=== PATIENT | female | born 1995 | race Caucasian/White ===

== ENCOUNTER 2016-06-22 22:50 | Emergency (ER) | payer BC ==
[2016-06-22 22:56] VITALS: TEMP 36.5; Ht 167.6 cm
[2016-06-22] MEDS ORDERED: TRAMADOL HCL 50 MG TAB PO STA (23:24)
[2016-06-22] MEDS ORDERED: CYCLOBENZAPRINE HCL 5 MG TAB PO ONE (23:30)
[2016-06-23] MEDS ORDERED: ULT/50 PO (00:28)
[2016-06-23] MEDS ORDERED: PRED20TA2 PO (00:28)
[2016-06-23] MEDS ORDERED: CYCL10TA6 PO (00:28)
[2016-06-23 00:55] VITALS: BP 119/83; PULSE 85; O2SAT 99
--- NOTE | 2016-06-23 04:28 | EMERGENCY ROOM VISIT NOTE ---
ED Visit Note First contact with patient: 22:58 CHIEF COMPLAINT: Low back pain HISTORY OF PRESENT ILLNESS: This 21-year-old female patient presents to the emergency department complaining of pain in the low back which began earlier today. The patient states that she was standing in the kitchen and reached down to pickler helper a piece of garbage when she felt a popping like sensation in her back. She has had slowly worsening pain over the past 12 hours. The pain does worsen with movement and certain positions. The patient notes the pain as dull and a 7/10. The patient has taken ibuprofen without significant relief of his pain. The patient denies any loss of control of their bowel or bladder functions. There has been no leg numbness or weakness, and no change in sensation. No nausea or vomiting or abdominal pain. No chest pain or shortness of breath. The patient has not had prior back injuries. No dysuria or increased urinary frequency. REVIEW OF SYSTEMS: A review of systems was performed with positives and pertinent negatives listed in the history of present illness. All other systems were reviewed and are negative. ALLERGIES: NKDA MEDICATIONS: No current medications PMH: No chronic medical disease SOCIAL HISTORY: Owns and works on a farm PHYSICAL EXAM: VITALS: Vitals are noted on the nurse's note and reviewed by myself. Vital signs stable. GENERAL: White female, in no acute distress, nondiaphoretic, well-developed well -nourished. SKIN: The skin was without rashes, erythema, edema, or bruising. Capillary refill less than 2 seconds. NECK: Supple without nuchal rigidity. No cervical spine tenderness. No paraspinous muscle tenderness. HEART: Regular rate and rhythm without murmurs gallops or rubs. LUNGS: Clear to auscultation bilaterally without wheezes, rales or rhonchi. ABDOMEN: Positive bowel sounds x 4. Normal tympanic percussion. Soft, nontender, without masses or organomegaly. Fleming sign negative. MUSCULOSKELETAL: No muscle atrophy, erythema, or edema noted of the back. There is left sided tenderness over the lumbar spinous processes. There is no tenderness over the paraspinous muscles. There is no tenderness over the thoracic spine or paraspinous muscles. There are no significant muscle spasms present. The patient is slow to move around with maximum tenderness with flexion. Positive LEFT straight leg raise test. NEURO: Patient was alert and oriented to person place and time. Normal sensation to light and sharp touch. Deep tendon reflexes 2+ in the lower extremities. Dorsalis pedis pulse 2+ bilaterally. Strength 5/5 and equal in the bilateral lower extremities. EMERGENCY DEPARTMENT COURSE: Physical exam and history were performed. Nursing notes and EMR were reviewed. The patient appears to have left lower lumbar spine tenderness slowly worsening over the past 12 hours. She does not have neurologic deficit or sign of cauda equina. The patient was given oral tramadol, prednisone, and Flexeril here in the department. X-rays were performed and do not show significant acute findings with official radiology report pending. Overall the patient had improvement of her symptoms after medication and was felt to be stable for discharge home. Her symptoms are likely musculoskeletal and should improve with rest and conservative measures. I recommended the patient follow with her PCP this week for further Management. She was otherwise invited back to the ER with any new, worsening, or concerning symptoms. Current/Historical Medications Scheduled Cyclobenzaprine Hcl (Flexeril), 10 MG PO TID Prednisone (Prednisone Tab), 2 TAB PO DAILY Tramadol Hcl (Ultram), 50 MG PO Q8H Allergies Coded Allergies: No Known Allergies (Unverified , 06/22/16) Vital Signs Date Time Temp Pulse Resp B/P Pulse Ox O2 Delivery O2 Flow Rate FiO2 06/23/16 00:55 85 18 119/83 99 06/22/16 22:56 36.5 93 18 164/93 100 Room Air Medications Administered Medications (Trade) Dose Ordered Sig/Param Route Start Time Stop Time Status Last Admin Dose Admin Tramadol HCl (Ultram Tab) 50 mg NOW STAT PO 06/22/16 23:24 06/22/16 23:26 DC 06/22/16 23:34 50 MG Prednisone (PredniSONE TAB) 40 mg NOW STAT PO 06/22/16 23:24 06/22/16 23:26 DC 06/22/16 23:33 40 MG Cyclobenzaprine HCl (Flexeril Tab) 10 mg NOW ONCE PO 06/22/16 23:30 06/22/16 23:31 DC 06/22/16 23:34 10 MG Departure Information Impression Primary Impression: Low back pain Dispostion Home / Self-Care Condition FAIR Prescriptions Prednisone (Prednisone Tab) 20 Mg Tab 2 TAB PO DAILY for 5 Days, #10 TAB Prov: Khurram Anderson PA-C 06/23/16 Cyclobenzaprine Hcl (FLEXERIL) 10 Mg Tab 10 MG PO TID for 7 Days, #21 TAB Prov: Khurram Anderson PA-C 06/23/16 Tramadol Hcl (ULTRAM) 50 Mg Tab 50 MG PO Q8H for 3 Days, #9 TAB Prov: Khurram Anderson PA-C 06/23/16 Forms HOME CARE DOCUMENTATION FORM, Work Instructions, Return To Work: 2 days Specific Date: 06/25/16 Lifting Limitations: Not more than 10lbs for 2 days IMPORTANT VISIT INFORMATION Patient Instructions My [facility] Additional Instructions You were seen and evaluated today on an emergency basis only. This is not a substitute for, or an effort to provide, complete comprehensive medical care. It is not possible to recognize and treat all injuries or illnesses in a single emergency department visit. For this reason it is recommended that you followup with your primary care physician in the next 1-2 weeks if symptoms persist. For baseline pain relief you may alternate ibuprofen and acetaminophen every 4 hours for pain control. Take 600 mg ibuprofen (Advil) and then 4 hours later take 1000 mg acetaminophen (Tylenol). Do not take more than 3000 mg acetaminophen in a single day. Take tramadol 50 mg every 8 hours as needed for breakthrough pain. Do not drink or drive on tramadol. Take prednisone 40 mg daily for the next 5 days Flexeril 1 tablet up to 3 times a day as needed for muscle spasms. No driving, working, or alcohol use with Flexeril. You are welcome to return to the emergency department anytime with new, worsening, or concerning symptoms. Work Instructions Return To Work: 2 days Specific Date: 06/25/16 Lifting Limitations: Not more than 10lbs for 2 days
--- NOTE | 2016-06-23 07:25 | DIAGNOSTIC IMAGING REPORT ---
LUMBAR SPINE 5 VIEWS HISTORY: Pain Low back pain COMPARISON: None. FINDINGS: There is no fracture. No subluxation. Disc spaces are preserved. IMPRESSION: No fracture or subluxation within the lumbar spine. Electronically signed by: Varun Cardona M.D. 06/23/2016 7:24 AM Dictated Date/Time: 06/23/2016 7:23 AM
== END 2016-06-23 00:55 | disposition home or self-care (01) ==
LOC: C.EDB 22:52 → C.EDA 06-23 00:55
DX: M54.5 Low back pain (principal)

== ENCOUNTER 2024-01-06 16:45 | Inpatient (IN) ==
[2024-01-06] MEDS ORDERED: CALCIUM CARBONATE 500 MG CHEWABLE TAB PO PRN (18:08)
[2024-01-06] MEDS ORDERED: LIDOCAINE 1% LOCAL 20 ML VIAL INFIL PRN (18:08)
[2024-01-06] MEDS ORDERED: diphenhydrAMINE Capsule 25 MG CAP PO PRN (18:08)
[2024-01-06] MEDS ORDERED: OXYTOCIN 30 UNITS/NSS 30 UNITS/500 ML BAG IV PRN (18:08)
[2024-01-06] MEDS ORDERED: ACETAMINOPHEN 325 MG TAB PO PRN (18:08)
[2024-01-06 18:38] LABS: Hematocrit (blood only) 35.1 % (37.0-47.0); Hemoglobin 11.8 g/dl (12.0-16.0); Mean Corpuscular Hemoglobin 29.3 pg (25.0-34.0); Mean Corpuscular Hgb Conc 33.6 g/dL (32.0-36.0); Mean Corpuscular Volume 87.1 fL (80.0-100.0); Mean Platelet Volume 10.5 fL (9.4-12.4); Platelet Count 294 K/uL (130-400); RDW Coefficient of Variation 13.3 % (11.5-14.5); RDW Standard Deviation 42.5 fL (36.4-46.3); Red Blood Count 4.03 M/uL (4.20-5.40); White Blood Count 11.65 K/ul (4.8-10.8)
[2024-01-06 18:54] LABS: Albumin Level 3.4 gm/dl (3.4-5.0); BUN Creatinine Ratio 20.9 (10-20); Bilirubin,Total 0.2 mg/dl (0.2-1.0); Calcium 9.2 mg/dl (8.6-10.3); Creatinine Clr Calc Pharmacy 249.6 ml/min; Globulin 3.3 gm/dl (2.5-4.0); Potassium 3.8 mmol/L (3.5-5.1); Total Protein 6.7 gm/dl (6.0-8.3)
[2024-01-06] MEDS: ceFAZolin 2000MG 2,000 MG/15 ML SYR IV SCH (19:16)
[2024-01-06] MEDS: miSOPROStoL 50 MCG TAB PO SCH (19:16)
--- NOTE | 2024-01-06 19:27 | History & Physical Report ---
Date of Service January 06, 2024 Assessment & Plan (1) Amniotic fluid leaking: (2) premature rupture of membranes: Plan: 28-year-old at 35 weeks and 1 day gestation who is presenting with premature rupture of membranes since 1 PM this afternoon, Vital signs stable afebrile, heart rate reassuring, GBS is unknown, collected, Cervix is unfavorable, closed presenting part vertex is high, no signs or symptoms of labor, Discussed the findings and recommended induction/augmentation of labor to decrease the latency and decrease the risk of intraamniotic infection, Patient understands all and agrees with plan, Plan admit, monitor, start induction of labor with p.o. Cytotec and IV antibiotics for unknown GBS and impending prolonged rupture of membranes, History of Present Illness Chief Complaint: Leaking of fluids Primary Care Provider: Octavio Blount patient is a 28-year-old at 35 weeks and 1 day gestation who has been leaking fluid since 1 PM this afternoon. It was a gush on her underwear and pants which got sloppy wet and then she went to see her solar electric practitioner, Taryn who she u sually sees. At her office her nitrazine was equivocal, speculum exam revealed pooling about her solar electric practitioner was unable to do AmniSure testing nor ferning she referred her to us since she is earlier than 37 weeks. patient had another episode at the solar electric practitioner's office around 3 PM and he tripped on the floor. She denies vaginal bleeding, contractions, abdominal pain, fever or chills, nausea vomiting, headaches or change in her vision. She reports good movements. Her has been uncomplicated. She was planning to deliver at home with solar electric practitioner. Her exam revealed here positive AmniSure testing and positive ferning and she is being admitted for premature rupture of membranes. Allergies Allergy/AdvReac Type Severity Reaction Status Date / Time No Known Allergies Allergy Unverified 01/06/24 16:50 Home Medications Medication Instructions Recorded Confirmed Type vits no.124-ferrous fum 1 tab PO DAILY 01/06/24 01/06/24 History 27 mg iron-folic acid 800 mcg tablet ( Vitamin) Patient History Medical History ADHD (attention deficit hyperactivity disorder) No pertinent past medical history Surgical History Hx of tonsillectomy Family History Other No pertinent family history in first degree relatives Social History Smoking Status: Never smoker Hx Alcohol Use: No Hx Substance Use: No Preferred Language: French Communication Ability: Effective Photographic Artist Required: No Beliefs That Will Affect Care: None marital status: Current Living Situation: Spouse Feels Safe at Home: Yes Assistive Devices: Glasses FAMILY AND DIVORCE LEGAL ASSISTANT History no history of STDs including chlamydia, gonorrhea, herpes Review of Systems as per Subjective / HPI Physical Exam Constitutional: WD/WN, vitals as above well developed, well nourished and comfortable Gastrointestinal (Abdomen): normal bowel sounds, soft, nontender, no hepatosplenomegaly ( Gravid, nontender) Genitourinary: normal external appearance Speculum/Bimanual Exam: normal appearance of the vagina and normal appearance of the cervix ( closed) Manual OB Exam: + cervical dilation (0), + cervical effacement 40% and + station high ( -3) OB Exam Monitor Tracing: + external FHT monitor used, + external uterine monitor used and + category I AmniSure testing positive, there is ferning on the slide, nitrazine is positive, bedside ultrasound is performed by myself, infant is vertex, placenta anterior, CARLOTA is 5.1 cm, 2 pockets on the left side of the uterus no pockets noted on the right side quadrants Results & Data Vital Signs (Past 12 Hours) Vital Signs Temp Pulse Resp BP Pulse Ox 01/06/24 19:18 83 99 01/06/24 19:13 87 99 01/06/24 19:08 18 01/06/24 19:08 36.5 C 18 01/06/24 19:08 81 01/06/24 19:08 81 135/79 99 01/06/24 17:21 36.8 C 18 01/06/24 17:12 91 H 135/85 Laboratory Results Lab Results 01/06/24 Range/Units 18:21 WBC 11.65 H (4.8-10.8) K/ul RBC 4.03 L (4.20-5.40) M/uL Hgb 11.8 L (12.0-16.0) g/dl Hct 35.1 L (37.0-47.0) % MCV 87.1 (80.0-100.0) fL MCH 29.3 (25.0-34.0) pg MCHC 33.6 (32.0-36.0) g/dL RDW Std Deviation 42.5 (36.4-46.3) fL RDW Coeff of Jairo 13.3 (11.5-14.5) % Plt Count 294 (130-400) K/uL MPV 10.5 (9.4-12.4) fL Sodium 138 (136-145) mmol/L Potassium 3.8 (3.5-5.1) mmol/L Chloride 105 (98-107) mmol/L Carbon Dioxide 25 (21-32) mmol/L Anion Gap 8 (3-11) BUN 9 (6-23) mg/dl Creatinine 0.43 L (0.6-1.2) mg/dl Est Cr Clr Drug Dosing 249.6 ml/min eGFR 134.10 BUN/Creatinine Ratio 20.9 H (10-20) Glucose 91 (70-99(Fasting)) mg/dl Calcium 9.2 (8.6-10.3) mg/dl Total Bilirubin 0.2 (0.2-1.0) mg/dl AST 14 (13-39) U/L ALT 14 (7-52) U/L Alkaline Phosphatase 74 (34-104) U/L Total Protein 6.7 (6.0-8.3) gm/dl Albumin 3.4 (3.4-5.0) gm/dl Globulin 3.3 (2.5-4.0) gm/dl Albumin/Globulin Ratio 1.0 (0.9-2) (2) premature rupture of membranes PROM onset of labor timing: unspecified duration between rupture of membranes and onset of labor Qualified Code(s): O42.919 - premature rupture of membranes, unspecified as to length of time between rupture and onset of labor, unspecified trimester
[2024-01-06] MEDS ORDERED: miSOPROStoL 50 MCG TAB PO SCH (20:00)
[2024-01-06] MEDS ORDERED: ACETAMINOPHEN 1,000 MG/100 ML VIAL IV PRN (20:04)
[2024-01-06] MEDS ORDERED: Nursing to Pharmacy Communication SCH (23:15)
[2024-01-07] MEDS: MELATONIN 3 MG TAB PO PRN (00:46)
[2024-01-07] MEDS ORDERED: ONDANSETRON INJ 2 MG/ML 2 ML VIAL IV PRN (07:27)
[2024-01-07] MEDS: ONDANSETRON INJ 2 MG/ML 2 ML VIAL ONE (07:42)
[2024-01-07] MEDS ORDERED: ceFAZolin 2000MG 2,000 MG/15 ML SYR IV PRN (08:00)
--- NOTE | 2024-01-07 08:31 | Labor Progress Brief Note ---
Date of Service January 07, 2024 Assessment & Plan (1) premature rupture of membranes: PROM onset of labor timing: unspecified duration between rupture of membranes and onset of labor Qualified Code(s): O42.919 - premature rupture of membranes, unspecified as to length of time between rupture and onset of labor, unspecified trimester Plan Oxytocin to augment ctx Cel[place] for PPROM Admission and Anticipated Discharge Date Admission Date: January 06, 2024 Physical Exam Genitourinary: Manual OB Exam: + cervical dilation 1 cm, + cervical effacement 90%, + station -2 and + amniotic fluid (Will start Oxytocin to augment ctx) clear OB Exam Monitor Tracing: + external FHT monitor used, + external uterine monitor used, + category I and + normal FHT variability Results & Data Vital Signs (Past 12 Hours) Vital Signs Temp Pulse Resp BP 01/07/24 07:08 78 148/80 H 01/07/24 05:39 18 01/07/24 05:39 36.7 C 18 01/07/24 03:31 82 147/77 H 01/07/24 03:30 83 162/85 H 01/07/24 03:29 18 01/07/24 03:29 36.6 C 18 01/07/24 00:17 36.4 C L 18 01/06/24 22:48 97 H 146/91 H 01/06/24 21:40 18 01/06/24 21:40 36.7 C 18 Laboratory Results 01/06/24 18:21 WBC 11.65 H RBC 4.03 L Hgb 11.8 L Hct 35.1 L MCV 87.1 MCH 29.3 MCHC 33.6 RDW Std Deviation 42.5 RDW Coeff of Jairo 13.3 Plt Count 294 MPV 10.5 Sodium 138 Potassium 3.8 Chloride 105 Carbon Dioxide 25 Anion Gap 8 BUN 9 Creatinine 0.43 L Est Cr Clr Drug Dosing 249.6 eGFR 134.10 BUN/Creatinine Ratio 20.9 H Glucose 91 Calcium 9.2 Total Bilirubin 0.2 AST 14 ALT 14 Alkaline Phosphatase 74 Total Protein 6.7 Albumin 3.4 Globulin 3.3 Albumin/Globulin Ratio 1.0 Treponema pallidum Ab Negative Blood Type O Positive Antibody Screen NEGATIVE
[2024-01-07] MEDS: LACTATED RINGER'S 1,000 ML IV PRN (09:04)
[2024-01-07] MEDS: OXYTOCIN 30 UNITS/NSS 30 UNITS/500 ML BAG IV PRN (09:05)
[2024-01-07] MEDS: BUTORPHANOL TARTRATE 2 MG/ML VIAL IV PRN (09:11)
[2024-01-07] MEDS: BETAMETH SOD PHOS/ACETATE IA 6 MG/ML IM STA (09:54)
[2024-01-07] MEDS ORDERED: HYDROCORTISONE ACETATE 25 MG SUPP PR PRN (11:47)
[2024-01-07] MEDS ORDERED: bisacodyL 10 MG SUPP PR PRN (11:47)
[2024-01-07] MEDS ORDERED: BENZOCAINE 20% SPRY 85 APPLN/85 GM CAN EXT PRN (11:47)
[2024-01-07] MEDS ORDERED: OXYTOCIN 30 UNITS/NSS 30 UNITS/500 ML BAG IV PRN (11:47)
[2024-01-07] MEDS ORDERED: ACETAMINOPHEN 325 MG TAB PO PRN (11:47)
--- NOTE | 2024-01-07 11:49 | Delivery Summary ---
Vaginal Delivery Summary Date of Service January 07, 2024 Vaginal Delivery Summary live female NEGIN over intact perineum with delayed cord clamping and Apgars 8/9. weight pending. Cord blood obtained followed by spontaneous delivery of intact placenta. No tears. QBL 50 ml. Final sponge and instrument count are correct. Mom and baby stable.
--- OUTSIDE RECORDS SUMMARY | 2024-01-07 13:19 | External Medical Summary | Summary of Care ---
Author Name Unknown Organization [facility] Address [address] [facility] [place] [address] Phone [phone] Care Team Providers Care Industrial Controller Name Role Phone Unavailable Primary Care Provider Unavailabl e Encounter Details Date Type Department Care Team (Late st Contact Info) Description 08/31/2023 Telephone Gynecology/Obstetrics [facility] [address] [place] [id number] Randy Casillas MD [address] [place] [phone] Allergies No known active allergiesdocumented as of this encounter (statuses as of 08/31/2023) Medications Medication Sig Dispensed Refills Start Date End Date Status 28-0.8 MG Oral Tablet Take by mouth. Active Folic Acid 0.8 MG Oral Capsule Take by mouth. Active documented as of this encounter (statuses as of 08/31/2023) Active Problems Problem Noted Date Diagnosed Date Supervision of normal first , antepartu m 07/01/2023 Class 1 obesity due to exces s calories without serious comorbidity in adult 07/01/2023 Overview: Early glucola Adjustment disorder with depressed mood 10/21/19 18 Estimated Date of Delivery Comme nts Yes 02/09/2024 Based on last me nstrual period of 05/05/2023 documented as of this encounter (statuses as of 08/31/2023) Immunizations Name Administration Dates Next Due TDAP (age 10 and older)(Boostrix) 08/22/2015 documented as of this encounter Social History Tobacco Use Types Packs/Day Years Used Date Smoking Tobacco: Never Smokeless Tobacco: Never Alcohol Use Standard Drinks/Week Comments Not Currently 0 (1 standard drink = 0.6 oz pur e alcohol) socially PHQ-2 Answer Date Recorded PHQ-2 Score 0 01/25/2018 [place] Depression Scale Answer Date Recorded [place] Depression Scale Total 4 07/01/2023 The thought of harming myself has occurred to me . Hardly ever 07/01/2023 Estimated Date of Delivery Comme nts Yes 02/09/2024 Based on last me nstrual period of 05/05/2023 Sex and Gender Information Value Date Recorded Sex Assigned at Not on file Gender Identity Not on file Sexual Orientation Not on file Job Start Date Occupation Industry Not on file Not on file Not on file documented as of this encounter Miscellaneous Notes * Telephone Encounter - Teresa Brooks LPN - 08/31/2023 1:44 PM EDT left message for patient to call office. Patient missed her last appointment and is on [facility] care report. documented in this encounter Plan of Treatment Health Maintenance Due Date Last Done Comments Hepatitis B (1 of 3 - 19+ 3-dose series) 2012 Depression Screening 12/09/2018 12/09/2017 COVID-19 Vaccine ( - 2022-2 4 season) 2022 Influenza Vaccine (FLU shot) (Season Ended) 2023 DTaP,Tdap,and Td Vaccines (2 - Td or Tdap) 08/21/2025 08/22/2015 Pap Smear 06/30/2026 07/01/2023, 08/18/2018, 02/25/2017 Cervical Cancer Screening 06/30/2028 HPV/Co-Test 06/30/2028 07/01/2023 GARDASIL-HPV IMMUNIZATION SERIES Aged Out No longer eligible b ased on patient's age to complete this topic MENINGOCOCCAL (MENACTRA/MENVEO) Aged Out No longer eligible b ased on patient's age to complete this topic Pneumococcal Vaccine: Pediatrics (0 to 5 Years) and At-Risk Patients (6 to 64 Years) Aged Out No longer eligible b ased on patient's age to complete this topic documented as of this encounter Medical Devices Not on filedocumented as of this encounter
--- OUTSIDE RECORDS SUMMARY | 2024-01-07 13:19 | External Medical Summary | Summary of Care ---
Author Name Unknown Organization [facility] Address [address] [facility] [place] [address] Phone [phone] Care Team Providers Care Factory Superintendent Name Role Phone Unavailable Primary Care Provider Unavailabl e Encounter Details Date Type Department Care Team (Late st Contact Info) Description 08/31/2023 Telephone Gynecology/Obstetrics [facility] [address] [place] [address] Randy Casillas MD [address] [place] [address] Allergies No known active allergiesdocumented as of this encounter (statuses as of 09/07/2023) Medications Medication Sig Dispensed Refills Start Date End Date Status 28-0.8 MG Oral Tablet Take by mouth. Active Folic Acid 0.8 MG Oral Capsule Take by mouth. Active documented as of this encounter (statuses as of 09/07/2023) Active Problems Problem Noted Date Diagnosed Date Supervision of normal first , antepartu m 07/01/2023 Class 1 obesity due to exces s calories without serious comorbidity in adult 07/01/2023 Overview: Early glucola Adjustment disorder with depressed mood 10/21/19 18 Estimated Date of Delivery Comme nts Yes 02/09/2024 Based on last me nstrual period of 05/05/2023 documented as of this encounter (statuses as of 09/07/2023) Immunizations Name Administration Dates Next Due TDAP (age 10 and older)(Boostrix) 08/22/2015 documented as of this encounter Social History Tobacco Use Types Packs/Day Years Used Date Smoking Tobacco: Never Smokeless Tobacco: Never Alcohol Use Standard Drinks/Week Comments Not Currently 0 (1 standard drink = 0.6 oz pur e alcohol) socially PHQ-2 Answer Date Recorded PHQ-2 Score 0 01/25/2018 [place] Depression Scale Answer Date Recorded [place] Depression Scale Total 4 07/01/2023 The thought [...] Telephone Encounter - Teresa Brooks LPN - 09/07/2023 2:07 PM EDT left message for patient to call office * Telephone Encounter - Teresa Brooks LPN - 08/31/2023 1:44 PM EDT left message for patient to call office. Patient missed her last appointment and is on [facility] care report. documented in this encounter Plan of Treatment Health Maintenance Due Date Last Done Comments Hepatitis B (1 of 3 - 19+ 3-dose series) 2012 Depression Screening 12/09/2018 12/09/2017 COVID-19 Vaccine (1 - 2022-2 4 season) 2022 Influenza Vaccine [...]
--- OUTSIDE RECORDS SUMMARY | 2024-01-07 13:19 | External Medical Summary | Summary of Care ---
Author Name Unknown Organization [facility] Address [address] [facility] [place] [address] Phone [phone] Care Team Providers Care Creative Coordinator Name Role Phone Unavailable Primary Care Provider Unavailabl e Encounter Details Date Type Department Care Team (Late st Contact Info) Description 09/03/2023 [facility] [address] [place] [address] Randy Casillas MD [address] [place] [address] Allergies No known active allergiesdocumented as of this encounter (statuses as of 09/14/2023) Medications Medication Sig Dispensed Refills Start Date End Date Status 28-0.8 MG Oral Tablet Take by mouth. Active Folic Acid 0.8 MG Oral Capsule Take by mouth. Active documented as of this encounter (statuses as of 09/14/2023) Active Problems Problem Noted Date Diagnosed Date Supervision of normal first , antepartu 07/01/2023 Class 1 obesity due to exces s calories without serious comorbidity in adult 07/01/2023 Overview: Early glucola Adjustment disorder with depressed mood 10/21/19 18 documented as of this encounter (statuses as of 09/14/2023) Immunizations Name Administration Dates Next Due TDAP (age 10 and older)(Boostrix) 08/22/2015 documented as of this encounter Social History Tobacco Use Types Packs/Day Years Used Date Smoking Tobacco: Never Smokeless Tobacco: Never Alcohol Use Standard Drinks/Week Comments Not Currently 0 (1 standard drink = 0.6 oz pur e alcohol) socially PHQ-2 Answer Date Recorded PHQ-2 Score 0 01/25/2018 [place] Depression Scale Answer Date Recorded [place] Depression Scale Total 4 07/01/2023 The thought of harming myself has occurred to me . Hardly ever 07/01/2023 Utilities Answer Date Recorded Do you have trouble paying y our heating, water, or electric bill? (Adult - for ages 18 years and over) Not on file 09/08/2023 Is your family able to pay t he heat, water, or electric bill? (Household - for ages 0-17 years) Not on file 09/08/2023 Does your family have access to good internet? (Household - for ages 0-17 years) Not on file 09/08/2023 Social Connections Answer Date Recorded How often do you feel lonely or isolated from those around you? (Adult - for ages 18 years and over) Not on file 09/08/2023 Comments Yes Sex and Gender Information Value Date Recorded Sex Assigned at Not on file Gender Identity Not on file Sexual Orientation Not on file Job Start Date Occupation Industry Not on file Not on file Not on file documented as of this encounter Miscellaneous Notes * Telephone Encounter - Teresa Brooks LPN - 09/14/2023 2:51 PM EDT left message for patient to call office. Patient missed her last appointment and is on [facility] care report. Episode closed. Letter sent. documented in this encounter Plan of Treatment [...]
[2024-01-07] MEDS: IBUPROFEN 600 MG TAB PO PRN (18:21)
[2024-01-07] MEDS: DOCUSATE SODIUM 100 MG CAP PO SCH (21:21)
[2024-01-08 07:43] LABS: Hematocrit (blood only) 31.4 % (37.0-47.0); Hemoglobin 10.1 g/dl (12.0-16.0); Mean Corpuscular Hemoglobin 28.8 pg (25.0-34.0); Mean Corpuscular Hgb Conc 32.2 g/dL (32.0-36.0); Mean Corpuscular Volume 89.5 fL (80.0-100.0); Mean Platelet Volume 10.6 fL (9.4-12.4); Platelet Count 249 K/uL (130-400); RDW Coefficient of Variation 13.6 % (11.5-14.5); RDW Standard Deviation 44.7 fL (36.4-46.3); Red Blood Count 3.51 M/uL (4.20-5.40)
[2024-01-08] MEDS ORDERED: PRENATAL VITAMIN 1 TAB PO SCH (08:00)
[2024-01-08] MEDS: PRENATAL VITAMIN 1 TAB PO SCH (08:26)
[2024-01-08] MEDS: FERROUS SULFATE 325 MG TAB PO SCH (08:26)
--- NOTE | 2024-01-08 08:43 | Obstetrical Progress Note ---
Date of Service January 08, 2024 Assessment & Plan Admission and Anticipated Discharge Date Admission Date: January 06, 2024 Subjective Patient is seen and examined. She feels well, no complaints. Ambulating without dizziness Voiding without difficulty Tolerating regular diet with out N&V Bleeding is minimal No CANDELARIA/ Change in vision/ fever/ chills/ CP/ SOB/ N&V/ Leg pain Breast feeding without problems Vital Signs Temp Pulse Resp BP Pulse Ox O2 Del Method 01/08/24 08:00 Room Air 01/08/24 08:00 37.0 C 91 H 16 123/75 100 Room Air 01/08/24 04:00 36.6 C 98 H 16 150/88 H 99 Room Air 01/07/24 23:15 36.8 C 96 H 16 158/84 H 99 Room Air Lab Results 01/06/24 01/06/24 01/08/24 Range/Units 18:21 19:12 07:14 WBC 11.65 H 19.50 H (4.8-10.8) K/ul RBC 4.03 L 3.51 L (4.20-5.40) M/uL Hgb 11.8 L 10.1 L (12.0-16.0) g/dl Hct 35.1 L 31.4 L (37.0-47.0) % MCV 87.1 89.5 (80.0-100.0) fL MCH 29.3 28.8 (25.0-34.0) pg MCHC 33.6 32.2 (32.0-36.0) g/dL RDW Std Deviation 42.5 44.7 (36.4-46.3) fL RDW Coeff of Jairo 13.3 13.6 (11.5-14.5) % Plt Count 294 249 (130-400) K/uL MPV 10.5 10.6 (9.4-12.4) fL Sodium 138 (136-145) mmol/L Potassium 3.8 (3.5-5.1) mmol/L Chloride 105 (98-107) mmol/L Carbon Dioxide 25 (21-32) mmol/L Anion Gap 8 (3-11) BUN 9 (6-23) mg/dl Creatinine 0.43 L (0.6-1.2) mg/dl Est Cr Clr Drug Dosing 249.6 ml/min eGFR 134.10 BUN/Creatinine Ratio 20.9 H (10-20) Glucose 91 (70-99(Fasting)) mg/dl Calcium 9.2 (8.6-10.3) mg/dl Total Bilirubin 0.2 (0.2-1.0) mg/dl AST 14 (13-39) U/L ALT 14 (7-52) U/L Alkaline Phosphatase 74 (34-104) U/L Total Protein 6.7 (6.0-8.3) gm/dl Albumin 3.4 (3.4-5.0) gm/dl Globulin 3.3 (2.5-4.0) gm/dl Albumin/Globulin Ratio 1.0 (0.9-2) Amniotic Protein POS Treponema pallidum Ab Negative (Negative) Blood Type O Positive Antibody Screen NEGATIVE PE: General: Alert, orientedx3, NAD Abd: soft, NT, fundus firm, below Umbilicus Perineum intact, Lochia rubra minimal Ext; NT, no edema AP: 28 yo s/p , ppd# 1 VSS Afebrile doing well Elevated BP's earlier, now WNL, had CANDELARIA yesterday but not today, will check labs Continue routine care All questions were answered D/C home tomorrow Results & Data Vital Signs (Past 12 Hours) Vital Signs Temp Pulse Resp BP Pulse Ox O2 Del Method 01/08/24 08:00 Room Air 01/08/24 08:00 37.0 C 91 H 16 123/75 100 Room Air 01/08/24 04:00 36.6 C 98 H 16 150/88 H 99 Room Air 01/07/24 23:15 36.8 C 96 H 16 158/84 H 99 Room Air
[2024-01-08 10:51] LABS: Albumin Globulin Ratio 1.1 (0.9-2); Albumin Level 3.2 gm/dl (3.4-5.0); BUN Creatinine Ratio 26.7 (10-20); Bilirubin,Total 0.2 mg/dl (0.2-1.0); Creatinine Clr Calc Pharmacy 238.5 ml/min; Potassium 3.7 mmol/L (3.5-5.1); Total Protein 6.2 gm/dl (6.0-8.3)
[2024-01-08] MEDS: ePHEDrine sulfate 50 MG/ML AMP ONE (17:54)
[2024-01-08] MEDS: fentANYL 2 MCG/ML BUPIVacaine 0.125%-NSS 100ML BAG ONE (17:54)
[2024-01-08] MEDS: BUPIVACAINE 0.25% PF 30 ML VIAL ONE (17:54)
[2024-01-08] MEDS: fentaNYL citrate PF 100 MCG/2 ML VIAL ONE (17:54)
[2024-01-08] MEDS: LIDOCAINE 2%/EPINEPHRINE 1:200,000 20 ML PF ONE (17:55)
[2024-01-08] MEDS: SODIUM CHLORIDE 0.9% PF INJ 10 ML VIAL ONE (17:55)
[2024-01-08] MEDS: DIPHTHER/TETAN/PERTUS Vaccine (Tdap, Adol/Adult) 0.5mL IM ONE (17:56)
[2024-01-08] MEDS: bisacodyL 5 MG TABEC PO SCH (19:14)
[2024-01-09 07:07] LABS: Basophils # (auto) 0.07 K/uL (0.00-0.20); Basophils % (auto) 0.6 %; Eosinophils # (auto) 0.42 K/uL (0.00-0.50); Eosinophils % (auto) 3.4 %; Hematocrit (blood only) 32.4 % (37.0-47.0); Hemoglobin 10.6 g/dl (12.0-16.0); Immature Granulocytes # (auto) 0.08 K/uL (0.01-0.20); Immature Granulocytes % (auto) 0.7 %; Lymphocytes # (auto) 3.83 K/uL (1.20-3.40); Lymphocytes % (auto) 31.2 %; Mean Corpuscular Hgb Conc 32.7 g/dL (32.0-36.0); Mean Corpuscular Volume 88.5 fL (80.0-100.0); Mean Platelet Volume 10.6 fL (9.4-12.4); Monocytes # (auto) 1.07 K/uL (0.11-0.59); Monocytes % (auto) 8.7 %; Neutrophils # (auto) 6.81 K/uL (1.40-6.50); Neutrophils % (auto) 55.4 %; Platelet Count 259 K/uL (130-400); RDW Coefficient of Variation 13.6 % (11.5-14.5); RDW Standard Deviation 44.2 fL (36.4-46.3); Red Blood Count 3.66 M/uL (4.20-5.40); White Blood Count 12.28 K/ul (4.8-10.8)
--- NOTE | 2024-01-09 09:05 | Obstetrical Progress Note ---
Date of Service January 09, 2024 Assessment & Plan Admission and Anticipated Discharge Date Admission Date: January 06, 2024 Subjective vaginal bleeding scant 10.6 ambulating well no calf tenderness elevated blood pressure will start on labetalol Results & Data Vital Signs (Past 12 Hours) Vital Signs Temp Pulse Pulse Resp BP BP Pulse Ox 01/09/24 08:45 157/95 H 01/09/24 07:42 36.7 C 82 16 153/96 H 97 01/08/24 23:15 36.4 C L 74 18 146/88 H 98 O2 Del Method 01/09/24 08:45 01/09/24 07:42 Room Air 01/08/24 23:15 Room Air
[2024-01-09] MEDS: LABETALOL HCL 100 MG TAB PO ONE ×3 (09:31→16:12)
[2024-01-09 20:31] VITALS: RESP 18
[2024-01-09] MEDS: LABETALOL HCL 300 MG TAB PO SCH (21:18)
[2024-01-10 08:01] VITALS: BP 134/80; PULSE 87; TEMP 97.9; O2SAT 96
--- NOTE | 2024-01-10 11:18 | Obstetrical Progress Note ---
Date of Service January 10, 2024 Assessment & Plan Admission and Anticipated Discharge Date Admission Date: January 06, 2024 Subjective abdomen soft and non tender ambulating well no calf tenderness bp under control on labetalol 300mg bid vaginal bleeding scant hgb 10.6 Results & Data Vital Signs (Past 12 Hours) Vital Signs Temp Pulse Pulse Resp BP BP Pulse Ox 01/10/24 07:09 36.6 C 87 18 134/80 96 01/10/24 05:00 36.8 C 90 18 143/86 H 98 O2 Del Method 01/10/24 07:09 Room Air 01/10/24 05:00 Room Air
== END 2024-01-10 14:14 | disposition home or self-care (01) | DRG 807 ==
LOC: OPB 16:45 → 4S1 16:47 → 4E2 01-07 13:53